=== PATIENT | male | born 1975 | race Caucasian/White ===

== ENCOUNTER 2021-07-10 09:20 | Inpatient (IN) | payer OTHER, SELFPAY ==
[2021-07-10] VITALS (11 sets, daily range): BP systolic 142–197; BP diastolic 88–131; PULSE 68–91; RESP 16–20; TEMP 36.5–36.6; O2SAT 93–99; BMI 31.8
--- NOTE | 2021-07-10 09:22 | XR_ITS ---
WS: [id number] Portable AP upright chest, 07/10/2021 Clinical Data: chest pain Comparison: None. Findings: No nodules, masses or effusions are seen. The heart is normal. The pulmonary vascularity is not increased. No pneumonia or pneumothorax is seen. XR/XR chest 1V portable [id number] Impression: Negative chest.
--- NOTE | 2021-07-10 09:22 | ECG_ITS ---
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 Measurements Intervals [place] Rate: 79 P: 53 CO: 171 QRS: 87 QRSD: 105 T: -27 QT: 366 QTc: 420 Interpretive Statements SINUS RHYTHM WITH SINUS ARRHYTHMIA MODERATE T-WAVE ABNORMALITY, CONSIDER INFERIOR ISCHEMIA [-0.1+ mV T-WAVE IN II/aVF] No previous ECG available for comparison Electronically Signed On 07-10-2021 15:30:19 FUMIGATOR AND STERILIZER by Rosie Ventura M.D. [email or web address]/[id number] f
--- NOTE | 2021-07-10 11:06 | W.ED.CHESTPA ---
HPI - Chest Pain General: Chief Complaint: Chest Pain Stated Complaint: CHEST PAIN Time Seen by Provider: 07/10/21 10:57 Source: patient and family () Mode of arrival: ambulatory Limitations: no limitations History of Present Illness: HPI narrative: Patient is a 46-year-old male who presents to ED today along with his for concerns of episodic chest pains. states patient had an episode almost a week ago of severe substernal and left-sided chest pain. She states it was brought on after he became very upset with an employee. She states since that time he has had episodic chest pains lasting approximately 15 minutes. They do feel symptoms are brought on with exertion and alleviated with rest. He states pain radiates into his neck. Patient reports a history of hypertension and has been off of his medications. He does state his blood pressures have been running extremely high over the past week or so. He denies any previous cardiac history. He states several years ago he was having similar chest pains and underwent cardiac stress testing which was reportedly normal (done in 2016). He states his pains went away once his blood pressure was controlled at that time. Patient denies palpitations, lightheadedness or dizziness. He states he does feel slightly short of breath when pain is present. Denies any risk factors for PE. Denies lower extremity edema or calf pain. Of note, patient states he began having chest pains just from walking from the waiting room to his room that again, alleviated with rest. complaint: chest pain Onset (ago): day(s) Timing of current episode: episodic Prior episodes: Yes Onset: during exertion and other (stress) Pain location: substernal and left chest Pain radiation: neck Severity: moderate Quality: tightness Relieving factors: rest Exacerbating factors: exertion and stress Associated symptoms: Reports no associated symptoms and dyspnea (during episodes of chest pain); Deny abdominal pain, fever(s), nausea, palpitations, syncope or vomiting Treatment prior to arrival: none Risk Factors: Coronary artery disease risk factors: hypertension Review of Systems Const: Denies: fever(s), chills, body aches, fatigue or malaise Eyes: Denies: change in vision or blurry vision Card: Reports: chest pain; Denies: palpitations, irregular heart rhythm, edema, swelling of feet/ankles, lightheadedness, syncope, pre-syncope, dyspnea on exertion or orthopnea Resp: Reports: dyspnea (during episodes of chest pain); Denies: productive cough, non-productive cough, wheezing or hemoptysis GI: Denies: abdominal pain, nausea, vomiting or diarrhea Musc: Denies: neck pain, back pain, extremity pain or joint pain Skin/Breast: Denies: rash Neuro: Denies: headache(s), numbness in extremities, weakness in extremities, sensory changes or dizziness Physical Exam Const: COMMON NORMALS: no acute distress, patient oriented x3, no limitations and alert GENERAL APPEARANCE: cooperative NUTRITIONAL APPEARANCE: overweight ORIENTATION/CONSCIOUSNESS: Yes awake, Yes oriented to person, Yes oriented to place and Yes oriented to time HENMT: COMMON NORMALS: normocephalic and atraumatic HEAD & SCALP: normocephalic and atraumatic Chest: COMMONS NORMALS: normal inspection of the chest and normal palpation of entire chest wall Resp: COMMON NORMALS: normal respiratory effort and clear to auscultation bilaterally AUSCULTATION: clear to auscultation bilaterally Cardio: COMMON NORMALS: regular rate and regular rhythm RATE: regular rate RHYTHM: regular rhythm Extremity: COMMON NORMALS: no clubbing, cyanosis or edema, no calf tenderness and no pedal edema Neuro: COMMON NORMALS: patient oriented x3 SENSORIUM/ORIENTATION: Yes alert, Yes oriented to person, Yes oriented to place and Yes oriented to time Course Consultations: Consultation #1: Dr. Bonilla-accepts admission Consultation #2: Dr. Madrid-recommends aspirin, beta-emilia, lovenox, 1/2 in nitro paste q6 for chest pain, and echo Vital Signs: Vital signs: Vital Signs Pulse Rate 71 07/10/21 13:04 Respiratory Rate 18 07/10/21 13:04 Blood Pressure 145/99 07/10/21 13:04 Pulse Oximetry 97 07/10/21 13:04 MDM - Chest Pain MDM Narrative: Medical decision making narrative: Patient has had intermittent exertional chest pains over the past week. Patient does have inverted T waves to inferior leads on his EKG. Baseline troponin of 57. HEART score would be 7. Spoke with Dr. Joy who agrees this patient needs hospitalization for cardiac stress testing. I spoke to Dr. Bonilla and Dr. Madrid for admission/consult. Lab Data: Labs: Lab Results 07/10/21 07/10/21 07/10/21 11:35 11:35 11:35 WBC 9.5 10^3/uL 10^3/ uL (4.0-10.0) RBC 5.98 10^6/uL H 10 ^6/uL (4.1-5.3) Hgb 17.6 g/dL H g/dL (11.7-16.6) Hct 52.2 % H % (42.0-52.0) MCV 87.3 fl fl (80-94) MCH 29.4 pg pg (28.0-34.0) MCHC 33.7 g/dL g/dL (30.0-36.0) RDW 12.0 % L % (12.1-15.1) Plt Count 220 10^3/cmm 10^3 /cmm (130-400) MPV 11.0 fL H fL (7.4-10.4) Neut % (Auto) 71.1 % % Lymph % (Auto) 20.9 % % [place] % (Auto) 6.0 % % Eos % (Auto) 0.7 % % Baso % (Auto) 0.4 % % Neut # (Auto) 6.74 10^3/uL 10^3 /uL (1.8-7.7) Lymph # (Auto) 2.0 10^3/uL 10^3/ uL (0.8-4.8) [place] # (Auto) 0.6 10^3/uL 10^3/ uL (0.2-0.9) Eos # (Auto) 0.1 10^3/uL 10^3/ uL (0.0-0.8) Baso # (Auto) 0.0 10^3/uL 10^3/ uL (0.0-0.1) Nucleated RBC % (a uto) 0 % % Nucleated RBCs # 0.0 /100WBC /100W BC Sodium 139 mmol/L mmol/L (136-145) Potassium 4.6 mmol/L mmol/L (3.5-5.1) Chloride 100 mmol/L mmol/L (98-107) Carbon Dioxide 24 mmol/L mmol/L (22-29) Anion Gap 19.6 H (5-19) BUN 17 mg/dL mg/dL (6-20) Creatinine 0.7 mg/dL mg/dL (0.7-1.2) GFR Calculation 121.4 mL/min mL/m in (90-130) Glucose 132 mg/dL H mg/dL (65-115) Calculated Osmolal ity 291 mOsm/kg mOsm/ kg (285-295) Calcium 9.5 mg/dL mg/dL (8.5-10.5) Total Bilirubin 0.9 mg/dL mg/dL (0.15-1.2) AST 18 U/L U/L (0-40) ALT 24 U/L U/L (0-41) Alkaline Phosphata se 57 IU/L IU/L (40-130) Troponin T Baselin e 57 ng/L H ng/L (0-15) Total Protein 8.5 g/dL g/dL (6.6-8.7) Albumin 5.1 g/dL g/dL (3.5-5.2) Globulin 3.4 g/dL g/dL (1.3-4.6) Imaging Data^: CXR: Radiologist's impression: [address] [address] XRay Report Signed Patient: Darshan Oakley Unit #: [id number] : 1975 Age/Sex: 46 / M ADM Date: 07/10/21 Loc: ER Room/Bed: Attending Dr: Ordering Provider/Ordering MD: Rosa Childress Date of Service: 07/10/21 Procedure(s): XR chest 1V portable [id number] Accession Number(s): [id number] Report Number: [id number] WS: [id number] Portable AP upright chest, 07/10/2021 Clinical Data: chest pain Comparison: None. Findings: No nodules, masses or effusions are seen. The heart is normal. The pulmonary vascularity is not increased. No pneumonia or pneumothorax is seen. XR/XR chest 1V portable [id number] Impression: Negative chest. Dictated By: Jina Esparza MD Signed By: Jina Esparza MD Signed Date/Time: 07/10/21958 DD/ 8 EKG Data^: EKG 1: EKG interpretation date: 07/10/21 EKG interpretation time: 09:36 Interpretation: Sinus rhythm with sinus arrhythmia Rate 79 Inverted T waves lead II, III, aVF No comparison EKGs Signed off by Dr. Mathew Discharge Plan Discharge Patient Disposition: Admitted As Inpatient Clinical Impression: Non-ST elevation NV (NSTEMI), Hypertension Condition: Stable Prescriptions: No Action No Known Home Medications RF: 0 Referrals: Lakisha Perez MD [Primary Care Provider] - Patient Instructions: Opioid Safety Coding Level of Care Code ED Revenue Stamp Cutter for Chg Fwd Exam Detailed
--- NOTE | 2021-07-10 11:22 | ECG_ITS ---
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 Measurements Intervals [place] Rate: 67 P: 50 ME: 171 QRS: 93 QRSD: 106 T: -24 QT: 367 QTc: 389 Interpretive Statements SINUS RHYTHM WITH SINUS ARRHYTHMIA POSSIBLE LEFT ATRIAL ENLARGEMENT [-0.1mV P-WAVE IN V1/V2] BORDERLINE RIGHT AXIS DEVIATION [QRS AXIS > 90] NONSPECIFIC T-WAVE ABNORMALITY Compared to ECG 07/10/2021 09:36:23 Possible ischemia no longer present T-wave abnormality still present Electronically Signed On 07-10-2021 16:51:43 TRANSONIC ENGINEER by Rosie Ventura M.D. [id number]
[2021-07-10] MEDS: metoprolol tartrate 25 mg Tablet PO (11:43)
[2021-07-10 11:54] LABS: Basophils % 0.4 %; Eosinophils # 0.1 10^3/uL (0.0-0.8); Eosinophils % 0.7 %; Hematocrit 52.2 % (42.0-52.0); Hemoglobin 17.6 g/dL (11.7-16.6); Lymphocytes % 20.9 %; Mean Corpuscular HGB Conc 33.7 g/dL (30.0-36.0); Mean Corpuscular Hemoglobin 29.4 pg (28.0-34.0); Mean Corpuscular Volume 87.3 fl (80-94); Monocytes # 0.6 10^3/uL (0.2-0.9); Neutrophils # 6.74 10^3/uL (1.8-7.7); Neutrophils % 71.1 %; Nucleated Red Blood Cells % 0 %; Platelet Count 220 10^3/cmm (130-400); Red Blood Count 5.98 10^6/uL (4.1-5.3); White Blood Count 9.5 10^3/uL (4.0-10.0)
[2021-07-10 12:10] LABS: Troponin(5th) Baseline 57 ng/L (0-15)
[2021-07-10 12:12] LABS: Alanine Aminotransferase 24 U/L (0-41); Albumin Level 5.1 g/dL (3.5-5.2); Alkaline Phosphatase 57 IU/L (40-130); Anion Gap 19.6 (5-19); Aspartate Amino Transferase 18 U/L (0-40); Blood Urea Nitrogen 17 mg/dL (6-20); Calcium 9.5 mg/dL (8.5-10.5); Carbon Dioxide 24 mmol/L (22-29); Chloride 100 mmol/L (98-107); Globulin 3.4 g/dL (1.3-4.6); Glomerular Filtration Rate 121.4 mL/min (90-130); Glucose 132 mg/dL (65-115); Osmolality Calculated 291 mOsm/kg (285-295); Potassium 4.6 mmol/L (3.5-5.1); Sodium 139 mmol/L (136-145); Total Bilirubin 0.9 mg/dL (0.15-1.2); Total Protein 8.5 g/dL (6.6-8.7)
[2021-07-10] MEDS: aspirin 81 mg Chew Tablet 324 MG PO (13:04)
--- NOTE | 2021-07-10 13:20 | USCV_ITS ---
Darshan Oakley Age: 46 Gender: M : 1975 Exam Date: 07/10/2021 14:09 Ordering Phys: Teto Salinas MD Technologist: Kenrick Mendoza [place] [facility] [place]: PULM EDEMA BP: 149 / 99 HR: 66 Rhythm: Sinus Technical Quality: Adequate MEASUREMENTS (Male / Female) Normal Values 2D ECHO LV Diastolic Diameter PLAX 4.1 cm 4.2 - 5.9 / 3.9 - 5.3 cm LV Systolic Diameter PLAX 2.5 cm IVS Diastolic Thickness 0.6 cm 0.6 - 1.0 / 0.6 - 0.9 cm IVS Systolic Thickness 0.7 cm LVPW Diastolic Thickness 0.8 cm 0.6 - 1.0 / 0.6 - 0.9 cm LVPW Systolic Thickness 0.9 cm LVOT Diameter 2.0 cm LV Ejection Fraction 2D Teich 70.3 % LV Ejection Fraction MOD 2C 47.1 % LV Ejection Fraction 2C AL 47.1 % LA Diameter 3.0 cm LA Width 3.1 cm LA Height 4.8 cm RA Width 4.1 cm RA Height 3.9 cm Aorta at Sinotubular Diameter 2.3 cm M-MODE Aortic Annulus Diameter 2.9 cm LA Ao Ratio MM 1.0 MV E Point Septal Separation 0.3 cm DOPPLER AV Peak Velocity 109.0 cm/s LVOT Peak Velocity 94.0 cm/s AV Area Cont Eq vti 2.8 cm squared AV Area Cont Eq pk 2.7 cm squared MV Area PHT 4.9 cm squared Mitral E to A Ratio 1.0 MV E' Velocity 38.0 cm/s Mitral E to MV E' Ratio 6.2 Mitral E to LV E' Lateral Ratio 5.2 Mitral E to LV E' Septal Ratio 7.6 Right Atrial Pressure 3.0 mmHg RV Acceleration Time 0.2 s RV Ejection Time 0.3 s RV AcT/ET 0.5 FINDINGS Left Ventricle Normal left ventricular size and systolic function, EF 59 %. No regional wall motion abnormalities. Relative hypokinesia of the mid and apical septal segments Right Ventricle The right ventricle is normal in size and function. Right Atrium The right atrium is normal in size. Left Atrium The left atrium is normal in size. Mitral Valve No gross abnormalities noted Aortic Valve No gross abnormalities noted Tricuspid Valve No gross abnormalities noted Pulmonic Valve Not visualized well Pericardium Normal pericardium without effusion. Aorta Normal ascending aorta dimension. CONCLUSIONS Normal left ventricular size and systolic function, EF 59 %. No regional wall motion abnormalities. Relative hypokinesia of the mid and apical septal segments. Normal cardiac chamber sizes. No significant stenotic or regurgitant lesions There is no pericardial effusion. There are no intracardiac masses. Dr Elizabeth Madrid MD FACC (Electronically Signed) Final Date: 10 July 2021 23:20 S
--- NOTE | 2021-07-10 13:30 | P.HP_ITS ---
Providers/Chief Complaint Primary Care Provider: Lakisha Perez MD Chief Complaint: CHEST PAIN History of Present Illness Darshan Oakley is a 46 year old male past medical history of prediabetes, hypertension who is presenting with chest pain. The chest pain started several days ago. It is intermittent, substernal, left-sided without radiation. Triggered and exacerbated by physical activities. No alleviating factors. Currently not having active chest pain. Associated with shortness of breath. Denies associated diaphoresis, palpitations, dizziness or lightheadedness. Reports similar episodes in the past. In 2016 he had unremarkable stress test. On presentation his blood pressure is 190s. Review of Systems General: Reports: 10 or more systems reviewed and unremarkable except in HPI and below Medications/Allergies Home Medications Medication Instructions Recorded Confirmed Last Taken Type No Known Home Medications 07/10/21 07/10/21 Unknown History Allergies Allergy/AdvReac Type Severity Reaction Status Date / Time No Known Allergies Allergy Unverified 07/10/21 12:02 Vitals/I&O/Wt Last Vital Signs Pulse 71 07/10/21 13:04 Resp 18 07/10/21 13:04 BP 145/99 07/10/21 13:04 Pulse Ox 97 07/10/21 13:04 Weight last 48 hrs Weight 106.594 kg Physical Exam Narrative: EXAM NARRATIVE: The patient is awake alert oriented. No acute distress. Mood and affect are appropriate. Responses are adequate. Skin is warm and dry. Moist extremities. Neck supple. No JVD Lungs are clear to auscultation bilaterally. Heart S1, S2, regular Abdomen soft, nontender, bowel sounds are present Extremities no edema sinus or calf tenderness bilaterally Eyes PERRL, extraocular muscles are intact. Normal speech. Neuro examination is nonfocal. Data : 07/10/21 11:35 07/10/21 11:35 Other Labs: Laboratory Results WBC 9.5 10^3/uL (4.0-10.0) 07/10/21 11:35 RBC 5.98 10^6/uL (4.1-5.3) H 07/10/21 11:35 Hgb 17.6 g/dL (11.7-16.6) H 07/10/21 11:35 Hct 52.2 % (42.0-52.0) H 07/10/21 11:35 MCV 87.3 fl (80-94) 07/10/21 11:35 MCH 29.4 pg (28.0-34.0) 07/10/21 11:35 MCHC 33.7 g/dL (30.0-36.0) 07/10/21 11:35 RDW 12.0 % (12.1-15.1) L 07/10/21 11:35 Plt Count 220 10^3/cmm (130-400) 07/10/21 11:35 MPV 11.0 fL (7.4-10.4) H 07/10/21 11:35 Neut % (Auto) 71.1 % 07/10/21 11:35 Lymph % (Auto) 20.9 % 07/10/21 11:35 [place] % (Auto) 6.0 % 07/10/21 11:35 Eos % (Auto) 0.7 % 07/10/21 11:35 Baso % (Auto) 0.4 % 07/10/21 11:35 Neut # (Auto) 6.74 10^3/uL (1.8-7.7) 07/10/21 11:35 Lymph # (Auto) 2.0 10^3/uL (0.8-4.8) 07/10/21 11:35 [place] # (Auto) 0.6 10^3/uL (0.2-0.9) 07/10/21 11:35 Eos # (Auto) 0.1 10^3/uL (0.0-0.8) 07/10/21 11:35 Baso # (Auto) 0.0 10^3/uL (0.0-0.1) 07/10/21 11:35 Nucleated RBC % (auto) 0 % 07/10/21 11:35 Nucleated RBCs # 0.0 /100WBC 07/10/21 11:35 Sodium 139 mmol/L (136-145) 07/10/21 11:35 Potassium 4.6 mmol/L (3.5-5.1) 07/10/21 11:35 Chloride 100 mmol/L (98-107) 07/10/21 11:35 Carbon Dioxide 24 mmol/L (22-29) 07/10/21 11:35 Anion Gap 19.6 (5-19) H 07/10/21 11:35 BUN 17 mg/dL (6-20) 07/10/21 11:35 Creatinine 0.7 mg/dL (0.7-1.2) 07/10/21 11:35 GFR Calculation 121.4 mL/min (90-130) 07/10/21 11:35 Glucose 132 mg/dL (65-115) H 07/10/21 11:35 Calculated Osmolality 291 mOsm/kg (285-295) 07/10/21 11:35 Calcium 9.5 mg/dL (8.5-10.5) 07/10/21 11:35 Total Bilirubin 0.9 mg/dL (0.15-1.2) 07/10/21 11:35 AST 18 U/L (0-40) 07/10/21 11:35 ALT 24 U/L (0-41) 07/10/21 11:35 Alkaline Phosphatase 57 IU/L (40-130) 07/10/21 11:35 Troponin T Baseline 57 ng/L (0-15) H 07/10/21 11:35 Total Protein 8.5 g/dL (6.6-8.7) 07/10/21 11:35 Albumin 5.1 g/dL (3.5-5.2) 07/10/21 11:35 Globulin 3.4 g/dL (1.3-4.6) 07/10/21 11:35 Impressions Chest X-Ray 07/10/21 09:22 Impression: Negative chest. EKG shows T wave inversion in inferior leads. Troponin slightly elevated. A&P Assessment and plan (1) Non-ST elevation NE (NSTEMI): Status: Acute (2) Hypertension: Status: Acute Qualifiers: Hypertension type: primary hypertension Qualified Code(s): I10 - Essential (primary) hypertension (3) Prediabetes: Status: Acute Additional A&P Information 46-year-old male with chest pain, possible inferior leads ischemic changes, elevated troponin. Non-ST elevation NE. The patient will be admitted to telemetry. Will be seen by Dr. Madrid. He recommended to continue with aspirin, initiate full dose Lovenox, beta-emilia, statin, and as needed nitro paste for chest pain. Hypertensive urgency. We will start Coreg. Will use as needed medications to keep the blood pressure stable. Prediabetes. Will check A1c level. Will cover him with insulin sliding scale. Dyslipidemia. Statin. We will check his fasting lipids in the morning. DVT prophylaxis. He will be on Lovenox. CODE STATUS. He wants to be full code. The plan of care was discussed with the patient and his . They verbalized understanding and satisfaction with the conversation. Attestations Medical Necessity Statement*: Observation Coding Level of Care Code Acute Gravity Prospecting Observer Helper for [facility] Fwd Diagnoses Non-ST elevation NE (NSTEMI) I21.4 Hypertension I10 Hypertension type: primary hypertension Prediabetes R73.03
[2021-07-10 14:00] LABS: INR 0.95 (0.8-1.2)
[2021-07-10 14:01] LABS: Partial Thromboplastin Time 29.6 SECONDS (23.9-36.7)
[2021-07-10 14:08] LABS: Troponin 5 2HR 123.2 ng/L (0-15); Troponin 5 2HR Delta 66.2 ABS# (0-10)
--- NOTE | 2021-07-10 14:17 | PC.NURSE ---
1405- ultraosund at bedside performing procedure. patient in no obvious distress. > patient will be transported to floor upon finish.
[2021-07-10 14:26] LABS: Estmated Average Glucose 148; Hemoglobin A1C 6.8 % (4.0-6.0)
--- NOTE | 2021-07-10 15:22 | ECG_ITS ---
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 Measurements Intervals [place] Rate: 71 P: 54 IA: 186 QRS: 85 QRSD: 108 T: 62 QT: 375 QTc: 408 Interpretive Statements SINUS RHYTHM Compared to ECG 07/10/2021 11:20:57 Sinus arrhythmia no longer present T-wave abnormality no longer present Electronically Signed On 07-10-2021 16:50:22 ELECTRONICS INSTRUCTOR by Rosie Ventura M.D. [email or web address] [email or web address]/store/[id number]
[2021-07-10 17:14] LABS: Glucose Point of Care 123 mg/dL (70-110)
[2021-07-10] MEDS: enoxaparin 100 mg/mL Syringe SUBCUT (17:25)
[2021-07-10] MEDS: carvedilol 3.125 mg Tablet PO (17:25)
[2021-07-10 17:46] LABS: Adenovirus Not Detected (NOT DETECT); Chlamydia Pneumoniae Not Detected (NOT DETECT); Coronavirus 229E,HKU1,NL63,OC4 Not Detected (NOT DETECT); Human Metapneumovirus Not Detected (NOT DETECT); Human Rhinovirus/Enterovirus Not Detected (NOT DETECT); Influenza A Not Detected (NOT DETECT); Influenza A H1 Not Detected (NOT DETECT); Influenza A H1-2009 Not Detected (NOT DETECT); Influenza A H3 Not Detected (NOT DETECT); Influenza B Not Detected (NOT DETECT); Mycoplasma Pneumoniae Not Detected (NOT DETECT); Parainfluenza Virus Type 1 Not Detected (NOT DETECT); Parainfluenza Virus Type 2 Not Detected (NOT DETECT); Parainfluenza Virus Type 3 Not Detected (NOT DETECT); Parainfluenza Virus Type 4 Not Detected (NOT DETECT); Respiratory Syncytial Virus A Not Detected (NOT DETECT); Respiratory Syncytial Virus B Not Detected (NOT DETECT); SARS-COV-2 Not Detected (NOT DETECT)
--- NOTE | 2021-07-10 19:51 | PM.CONSULT ---
Providers/Reason For Consult Consulting Physician/Specialty*: WILMER Madrid MD/cardiology Reason for Consult*: Patient with chest pain and elevated troponin T Attending Physician: Teto Salinas Primary Care Provider: Lakisha Perez MD History of Present Illness History of Present Illness Darshan Oakley is a 46 year old male, is admitted to the hospital through the emergency room, where he presented with complaints of a prolonged episode of chest pain. Patient was found to have elevated troponin T with a significant delta at the 2 and 6 hours interval. Cardiology consult is requested for further cardiac evaluation and recommendations. This patient has a history of hypertension, dyslipidemia and type 2 diabetes. He has been very noncompliant with the medications and follow-ups. He started having chest pain around 8:00 this morning. The pain might have lasted for 2 to 3 hours. The pain was radiating across the chest and also to the neck and some to the back. He might have had some shortness of breath. No other associated symptoms or radiation of pain. No palpitation, dizziness or syncopal episode. Patient had the first episode of chest pain last Saturday at work when he had some arguments with one of the employees. The pain lasted for 15 minutes or so and then subsided spontaneously. Last , he had another episode of pain while at work. 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 This morning he had a fourth episode of chest pain in a week. This time the pain was more severe and lasted longer. He denies any fever, chills or cough. He has some amount of dyspnea exertion. No orthopnea PND. No other specific complaints. He has a history of high blood pressure for the last 6 or 7 years. He also was diagnosed with diabetes 2 years ago. He took the medication for a year or so and then quit. He also was prescribed cholesterol medication sometime ago. He might have taken it for few months and then stopped taking it. His father had myocardial infarction at age of 45. His old brother had a percutaneous intervention in his 40s. No other relevant family history. He denies any smoking abuse or alcohol abuse. At the time of my examination, patient is pain-free. Review of Systems Narrative: CONSTITUTIONAL: No fever or chills. EYES: No blurring of vision or other visual disturbances lately. ENT: No hoarseness of voice, auditory disturbances or sore throat. CARDIOVASCULAR: As mentioned above. RESPIRATORY: No significant cough. GASTROINTESTINAL: No hematemesis or melena. GENITOURINARY: No dysuria or hematuria. INTEGUMENTARY: No skin rashes or history of skin cancer. NEURO: No transient ischemic attacks or amaurosis. PSYCHIATRIC: No history of psychosis or major depression. HEMATOLOGIC: No bleeding disorders or significant anemia. ENDOCRINE: No history of polyuria or polydipsia. MUSCULOSKELETAL: No recent joint pain or swelling. ALLERGY/IMMUNOLOGY: As mentioned above. Meds/Allergies Home Medications and Allergies Home Medications Medication Instructions Recorded Confirmed Last Taken Type No Known Home Medications 07/10/21 07/10/21 Unknown History Allergies Allergy/AdvReac Type Severity Reaction Status Date / Time No Known Allergies Allergy Unverified 07/10/21 12:02 Current Medications Current Medications Generic Name Dose Route Start Last Admin Trade Name Freq PRN Reason Stop Dose Admin Carvedilol 3.125 mg 07/10/21 18:00 07/10/21 17:25 Carvedilol 3.125 Mg Tablet PO 3.125 mg Q12H MARTHA Administration Enoxaparin Sodium 100 mg 07/10/21 16:30 07/10/21 17:25 Enoxaparin 100 Mg/Ml Syringe SUBCUT 100 mg Q12H MARTHA Administration Insulin Human Lispro 0 unit 07/10/21 18:00 07/10/21 17:19 Insulin Lispro 100 Unit/1 Ml SUBCUT Not Given [facility] Protocol Vitals/I&O/Wt Last Vital Signs Temp 97.9 F 07/10/21 19:50 Pulse 83 07/10/21 19:50 Resp 18 07/10/21 19:50 BP 176/100 07/10/21 19:50 Pulse Ox 93 07/10/21 19:50 07/10/21 07/10/21 07/10/21 06:59 14:59 22:59 Intake Total 480 / 480 Balance 480 / 480 Weight last 48 hrs Weight 235 lb Physical Exam Narrative: EXAM NARRATIVE: GENERAL: The patient is alert and oriented times three. Not in any acute distress. HEENT: No significant pallor, icterus or lymphadenopathy. The pupils are symmetrical. Oral cavity: There are no mucous membrane lesions. Funduscopic examination: The fundus is not visualized NECK: Trachea appears to be central. No masses noted. No JVD or thyromegaly appreciated. No carotid bruit. RESPIRATORY: Chest is symmetrical. No intercostals muscle retraction or any accessory muscle activation. There is no chest wall tenderness. Breath sounds are heard bilaterally. No rales or rhonchi heard. No evidence of any consolidation. BREASTS: Deferred. HEART: The PMI is in the 5th left intercostals space just inside the midclavicular line. No palpable precordial events. S1 and S2 are normal. No S3 or S4 heard. No pericardial rub or any click heard. ABDOMEN: No vessel pulsations or distention. No tenderness. No organomegaly appreciated. No abdominal bruit. Bowel sounds are normally heard. : Deferred. RECTAL: Deferred. LYMPHATIC: No lymphadenopathy noted in the neck or groin. EXTREMITIES: No edema or cyanosis. No clubbing. The pulses are symmetrical bilaterally. The radial, femoral, dorsalis pedis and the posterior tibial pulses are palpated and found to be in good volume and amplitude. MUSCULOSKELETAL: No acute joint deformities or swelling] SKIN: There are no significant scars or skin rash noted. NEUROPSYCHIATRIC: The patient is alert and oriented x3. Appears to be in a good mood. The higher functions are grossly within normal limits. No tremors or rigidity noted. Data Labs: Other Labs: Laboratory Last Values WBC 9.5 10^3/uL (4.0- 10.0) 07/10/21 11:35 RBC 5.98 10^6/uL (4.1 -5.3) H 07/10/21 11:35 Hgb 17.6 g/dL (11.7-1 6.6) H 07/10/21 11:35 Hct 52.2 % (42.0-52.0 ) H 07/10/21 11:35 MCV 87.3 fl (80-94) 07/10/21 11:35 MCH 29.4 pg (28.0-34. 0) 07/10/21 11:35 MCHC 33.7 g/dL (30.0-3 6.0) 07/10/21 11:35 RDW 12.0 % (12.1-15.1 ) L 07/10/21 11:35 Plt Count 220 10^3/cmm (130 -400) 07/10/21 11:35 MPV 11.0 fL (7.4-10.4 ) H 07/10/21 11:35 Neut % (Auto) 71.1 % 07/10/21 11:35 Lymph % (Auto) 20.9 % 07/10/21 11:35 [place] % (Auto) 6.0 % 07/10/21 11:35 Eos % (Auto) 0.7 % 07/10/21 11:35 Baso % (Auto) 0.4 % 07/10/21 11:35 Neut # (Auto) 6.74 10^3/uL (1.8 -7.7) 07/10/21 11:35 Lymph # (Auto) 2.0 10^3/uL (0.8- 4.8) 07/10/21 11:35 [place] # (Auto) 0.6 10^3/uL (0.2- 0.9) 07/10/21 11:35 Eos # (Auto) 0.1 10^3/uL (0.0- 0.8) 07/10/21 11:35 Baso # (Auto) 0.0 10^3/uL (0.0- 0.1) 07/10/21 11:35 Nucleated RBC % (a uto) 0 % 07/10/21 11:35 Nucleated RBCs # 0.0 /100WBC 07/10/21 11:35 PT 13.00 SECONDS (12 .1-14.9) 07/10/21 13:23 INR 0.95 (0.8-1.2) 07/10/21 13:23 APTT 29.6 SECONDS (23. 9-36.7) 07/10/21 13:23 Sodium 139 mmol/L (136-1 45) 07/10/21 11:35 Potassium 4.6 mmol/L (3.5-5 .1) 07/10/21 11:35 Chloride 100 mmol/L (98-10 7) 07/10/21 11:35 Carbon Dioxide 24 mmol/L (22-29) 07/10/21 11:35 Anion Gap 19.6 (5-19) H 07/10/21 11:35 BUN 17 mg/dL (6-20) 07/10/21 11:35 Creatinine 0.7 mg/dL (0.7-1. 2) 07/10/21 11:35 GFR Calculation 121.4 mL/min (90- 130) 07/10/21 11:35 Glucose 132 mg/dL (65-115 ) H 07/10/21 11:35 POC Glucose 123 mg/dL (70-110 ) H 07/10/21 17:09 Estimat Average Gl ucose 148 07/10/21 11:35 Hemoglobin A1c 6.8 % (4.0-6.0) H 07/10/21 11:35 Calculated Osmolal ity 291 mOsm/kg (285- 295) 07/10/21 11:35 Calcium 9.5 mg/dL (8.5-10 .5) 07/10/21 11:35 Total Bilirubin 0.9 mg/dL (0.15-1 .2) 07/10/21 11:35 AST 18 U/L (0-40) 07/10/21 11:35 ALT 24 U/L (0-41) 07/10/21 11:35 Alkaline Phosphata se 57 IU/L (40-130) 07/10/21 11:35 Troponin T Baselin e 57 ng/L (0-15) H 07/10/21 11:35 Troponin T 120 Min goldie 123.2 ng/L (0-15) H 07/10/21 13:23 Delta Troponin T 66.2 ABS# (0-10) H* 07/10/21 13:23 Total Protein 8.5 g/dL (6.6-8.7 ) 07/10/21 11:35 Albumin 5.1 g/dL (3.5-5.2 ) 07/10/21 11:35 Globulin 3.4 g/dL (1.3-4.6 ) 07/10/21 11:35 Coronavirus 229E ( PCR) Not detected (NO T DETECT) 07/10/21 15:45 SARS-CoV-2 (PCR) Not detected (NO T DETECT) 07/10/21 15:45 A&P Assessment and plan (1) Acute coronary syndrome: The patient's the clinical features are consistent with acute coronary syndrome. Hemodynamically seems to be stable. He has stage II hypertension. The EKGs are not. Patient may be treated with aspirin, Plavix, Lovenox, beta-emilia and nitrates. An echocardiogram would be helpful to evaluate the LV function and rule out any other pathology. Status: Acute (2) Prediabetes: The blood sugar needs to be closely followed up. Status: Acute (3) Non-ST elevation [place] (NSTEMI): Patient may require a cardiac catheterization, to further evaluate the coronary status and decide on further management. Status: Acute (4) Benign essential HTN: The antihypertensive medications need to be optimized Status: Acute (5) Dyslipidemia: Status: Acute Additional A&P Information Based on the patient's the clinical progress and the results of the above, further recommendations will be made. Thank you for the opportunity to evaluate this patient make these recommendations Consult Attestations Medical Necessity Statement: Patient requires continued hospital stay for close monitoring and further management Coding Level of Care Code Acute Sales Development Consultant for Chg Fwd History Detailed Exam Detailed Medical Decision Making High Complexity Diagnoses Acute coronary syndrome I24.9 Prediabetes R73.03 Non-ST elevation AR (NSTEMI) I21.4 Benign essential HTN I10 Dyslipidemia E78.5
[2021-07-10 20:37] LABS: Glucose Point of Care 122 mg/dL (70-110)
[2021-07-10] MEDS: hyDRALAzine 20 mg/mL INJ 1 mL 10 MG IVP (23:42)
--- NOTE | 2021-07-10 23:56 | PC.NURSE ---
BP BP was elevated at 177/112 with VS check. Had been up ambulating in [place] some. No c/o. Hydralazine IV given by RN
[2021-07-11] VITALS (16 sets, daily range): BP systolic 116–177; BP diastolic 70–112; PULSE 62–110; RESP 16–26; TEMP 36.6–36.9; O2SAT 93–96
[2021-07-11] MEDS: clopidogrel 300 mg Tablet PO (00:57)
[2021-07-11] MEDS: enoxaparin 100 mg/mL Syringe SUBCUT (03:54)
[2021-07-11 05:34] LABS: Basophils # 0.1 10^3/uL (0.0-0.1); Basophils % 0.6 %; Eosinophils # 0.1 10^3/uL (0.0-0.8); Eosinophils % 1.5 %; Hematocrit 48.3 % (42.0-52.0); Hemoglobin 16.2 g/dL (11.7-16.6); Lymphocytes # 2.7 10^3/uL (0.8-4.8); Lymphocytes % 30.2 %; Mean Corpuscular HGB Conc 33.5 g/dL (30.0-36.0); Mean Corpuscular Hemoglobin 29.6 pg (28.0-34.0); Mean Corpuscular Volume 88.3 fl (80-94); Monocytes # 0.6 10^3/uL (0.2-0.9); Monocytes % 7.2 %; Neutrophils # 5.29 10^3/uL (1.8-7.7); Neutrophils % 59.8 %; Nucleated Red Blood Cells % 0 %; Platelet Count 205 10^3/cmm (130-400); Red Blood Count 5.47 10^6/uL (4.1-5.3); Red Cell Distribution Width 12.2 % (12.1-15.1); White Blood Count 8.8 10^3/uL (4.0-10.0)
[2021-07-11] MEDS: carvedilol 3.125 mg Tablet PO (05:51)
--- NOTE | 2021-07-11 05:55 | PC.NURSE ---
SHIFT SUMMARY Did not sleep much. Declined offer of sleeping pilll last evening saying that he never gets alot of sleep. Has had no c/o chest pain. pvc monitor has been showing SR with occ SB. BP was much improved with am VS. Has been NPO since order received from Dr Madrid around midnight. Also received one time dose of po Plavix
[2021-07-11 06:11] LABS: Alanine Aminotransferase 20 U/L (0-41); Albumin Level 4.3 g/dL (3.5-5.2); Alkaline Phosphatase 52 IU/L (40-130); Anion Gap 19.1 (5-19); Aspartate Amino Transferase 21 U/L (0-40); Blood Urea Nitrogen 18 mg/dL (6-20); Calcium 9.1 mg/dL (8.5-10.5); Carbon Dioxide 22 mmol/L (22-29); Chloride 102 mmol/L (98-107); Glomerular Filtration Rate 104.1 mL/min (90-130); Glucose 133 mg/dL (65-115); Osmolality Calculated 292 mOsm/kg (285-295); Potassium 4.1 mmol/L (3.5-5.1); Sodium 139 mmol/L (136-145); Total Bilirubin 1.1 mg/dL (0.15-1.2); Total Protein 7.3 g/dL (6.6-8.7)
[2021-07-11 06:20] LABS: Chol HDL Ratio 10.18 mg/dL (1.0-5.00); Cholesterol 336 mg/dL (0-200); HDL Cholesterol 33 mg/dL (60-100); Triglycerides 873 mg/dL (0-150)
[2021-07-11 06:50] LABS: LDL Cholesterol Direct 147 mg/dL (0-100)
[2021-07-11 06:55] LABS: Glucose Point of Care 149 mg/dL (70-110)
[2021-07-11] MEDS: aspirin 81 mg EC Tablet PO (08:11)
[2021-07-11] MEDS: atorvastatin 40 mg Tablet PO (08:11)
[2021-07-11] MEDS: hyDRALAzine 20 mg/mL INJ 1 mL 10 MG IVP (08:12)
--- NOTE | 2021-07-11 08:46 | ECG_ITS ---
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 Measurements Intervals [place] Rate: 80 P: 51 WY: 184 QRS: 88 QRSD: 102 T: -53 QT: 370 QTc: 429 Interpretive Statements SINUS RHYTHM MODERATE T-WAVE ABNORMALITY, CONSIDER LATERAL ISCHEMIA [-0.1+ mV T WAVE IN I/aVL/V5/V6] MODERATE T-WAVE ABNORMALITY, CONSIDER INFERIOR ISCHEMIA [-0.1+ mV T WAVE IN II/aVF] Compared to ECG 07/10/2021 15:35:01 T-wave abnormality now present Possible ischemia now present Electronically Signed On 07-12-2021 0:00:00 CHALK EXTRUDING MACHINE OPERATOR by Elizabeth Madrid M.D. [id number]
[2021-07-11] MEDS: amlodipine 5 mg Tablet PO (08:47)
[2021-07-11] MEDS: nitroglycerin 1 gm/inch oint Pkt 0.5 INCH TOPICAL (08:47)
[2021-07-11 09:49] LABS: Troponin T (5th) Once 89 ng/L (0-15)
[2021-07-11] MEDS: sodium chloride 0.9% 1,000 ML 50 ML IV (09:50)
--- NOTE | 2021-07-11 10:09 | ECG_ITS ---
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 Measurements Intervals [place] Rate: 91 P: 47 CT: 182 QRS: 80 QRSD: 105 T: -42 QT: 361 QTc: 445 Interpretive Statements SINUS RHYTHM MODERATE T-WAVE ABNORMALITY, CONSIDER INFERIOR ISCHEMIA [-0.1+ mV T WAVE IN II/aVF] Compared to ECG 07/10/2021 15:35:01 T-wave abnormality now present Possible ischemia now present Electronically Signed On 07-12-2021 0:12:51 YOUTH SUPPORT WORKER by Elizabeth Madrid M.D. [id number]
[2021-07-11 11:57] LABS: Glucose Point of Care 206 mg/dL (70-110)
--- NOTE | 2021-07-11 13:08 | P.PN_ITS ---
Subjective Subjective: Interval history: Patient did okay through the night. This morning he had episode of chest pain lasting for less than 5 minutes. Currently he is pain-free. The EKG from this morning showed sinus rhythm with nonspecific T wave changes in the inferior leads. Denies any fever or chills. No cough. No other specific complaints. Medications: Reviewed: Yes Medication Review Details: Current Medications Acetaminophen (Acetaminophen 325 Mg Tablet) 650 mg PO Q6H PRN PRN Reason: Mild/Mod Pain Or Temp >/= 101 Amlodipine Besylate (Amlodipine 5 Mg Tablet) 5 mg PO DAILY [facility] Last Admin: 07/11/21 08:47 Dose: 5 mg Documented by: Aspirin (Aspirin 81 Mg Ec Tablet) 81 mg PO DAILY [facility] Last Admin: 07/11/21 08:11 Dose: 81 mg Documented by: Atorvastatin Calcium (Atorvastatin 40 Mg Tablet) 40 mg PO DAILY [facility] Last Admin: 07/11/21 08:11 Dose: 40 mg Documented by: Carvedilol (Carvedilol 3.125 Mg Tablet) 6.25 mg PO Q12H [facility] Dextrose (Dextrose 50% Syringe 50 Ml) 25 ml IVP ONCE PRN; Protocol PRN Reason: hypoglycemia protocol Dextrose (Dextrose 50% Syringe 50 Ml) 50 ml IVP PRN PRN; Protocol PRN Reason: hypoglycemia protocol Enoxaparin Sodium (Enoxaparin 100 Mg/Ml Syringe) 100 mg SUBCUT Q12H [facility] Last Admin: 07/11/21 03:54 Dose: 100 mg Documented by: Glucagon (Glucagon 1 Mg/Ml Inj 1 Ml) 1 mg IM ONCE PRN; Protocol PRN Reason: Adult Acute Hypoglycemia Prot. Hydralazine HCl (Hydralazine 20 Mg/Ml Inj 1 Ml) 10 mg IVP Q4H PRN PRN Reason: SBP above 160 Last Admin: 07/11/21 08:12 Dose: 10 mg Documented by: Dextrose (D5w) 500 mls @ 100 mls/hr IV ONCE PRN; Protocol PRN Reason: Adult Acute Hypoglycemia Prot Sodium Chloride (Sodium Chloride 0.9%) 1,000 mls @ 50 mls/hr IV .Q20H ONE Stop: 07/12/21 05:48 Insulin Human Lispro (Insulin Lispro 100 Unit/1 Ml) 0 unit SUBCUT WM&BEDTIME [facility]; Protocol Last Admin: 07/11/21 08:07 Dose: Not Given Documented by: Nitroglycerin (Nitroglycerin 1 Gm/Inch Oint Pkt) 1 inch TOPICAL Q6H MARTHA Ondansetron HCl (Ondansetron 2 Mg/Ml Sdv 2 Ml) 4 mg IVP Q6H PRN PRN Reason: vomiting, or N/V if npo Zolpidem Tartrate (Zolpidem 5 Mg Tablet) 5 mg PO BEDTIME PRN PRN Reason: INSOMNIA Vitals/I&O/Wt Last Vital Signs Temp 97.9 F 07/11/21 11:25 Pulse 109 H 07/11/21 11:25 Resp 17 07/11/21 11:25 BP 138/93 07/11/21 11:25 Pulse Ox 93 07/11/21 11:25 07/10/21 07/11/21 07/11/21 22:59 06:59 14:59 Intake Total 720 / 720 340 / 1060 Balance 720 / 720 340 / 1060 Weight last 48 hrs Weight 235 lb Physical Exam Narrative: EXAM NARRATIVE: GENERAL: The patient is alert and oriented times three. Not in any acute distress. HEENT: No significant pallor, icterus or lymphadenopathy. The pupils are symmetrical. Oral cavity: There are no mucous membrane lesions. NECK: Trachea appears to be central. No masses noted. No JVD or thyromegaly appreciated. No carotid bruit. RESPIRATORY: Chest is symmetrical. No intercostals muscle retraction or any accessory muscle activation. There is no chest wall tenderness. Breath sounds are heard bilaterally. No rales or rhonchi heard. No evidence of any consolidation. BREASTS: Deferred. HEART: No palpable precordial events. S1 and S2 are normal. No S3 or S4 heard. No pericardial rub or any click heard. ABDOMEN: No vessel pulsations or distention. No tenderness. No organomegaly appreciated. No abdominal bruit. Bowel sounds are normally heard. : Deferred. RECTAL: Deferred. LYMPHATIC: No lymphadenopathy noted in the neck or groin. EXTREMITIES: No edema or cyanosis. No clubbing. The peripheral pulses are palpable in fairly good volume and amplitude MUSCULOSKELETAL: No acute joint deformities or swelling] SKIN: There are no significant scars or skin rash noted. NEUROPSYCHIATRIC: The patient is alert and oriented x3. Appears to be in a good mood. The higher functions are grossly within normal limits. No tremors or rigidity noted. Data : 07/11/21 04:48 07/11/21 04:48 Echo: My impression: Normal left ventricular size and systolic function, EF 59 %. Relative hypokinesia of the mid and apical septal segments. Normal cardiac chamber sizes. No significant stenotic or regurgitant lesions There is no pericardial effusion. There are no intracardiac masses. A&P Assessment and plan (1) Acute coronary syndrome: The patient's the clinical features are consistent with acute coronary syndrome. In view of his recurrent episodes of chest pain, in order to further evaluate his coronary status, he requires a cardiac catheterization. The risk of bleeding, hematoma, vascular injury, myocardial infarction, CVA, renal failure and other concomitant complications were explained in detail. Patient understood this well and consented to proceed. We may go ahead and schedule the angiogram this afternoon. Based on the angiogram findings, further recommendations will be made. In the meanwhile, he may continue on the current medications. He also may start taking the Plavix 75 mg p.o. daily Status: Acute (2) Prediabetes: The blood sugar needs to be closely followed up. Status: Acute (3) Non-ST elevation [place] (NSTEMI): Patient will be scheduled for the cardiac catheterization this evening. Based on the angiogram findings, further management decisions will be made Status: Acute (4) Benign essential HTN: The antihypertensive medications need to be optimized Status: Acute (5) Dyslipidemia: May continue on the current medication Status: Acute Additional A&P Information Based on the patient's the clinical progress and the results of the above, further management decisions will be made. Attestations Medical Necessity Statement*: Patient requires continued hospital stay for close monitoring and further management Coding Level of Care Code Acute Ground Crew Chief for g Fwd History Detailed Exam Detailed Medical Decision Making High Complexity Diagnoses Acute coronary syndrome I24.9 Prediabetes R73.03 Non-ST elevation [place] (NSTEMI) I21.4 Benign essential HTN I10 Dyslipidemia E78.5
--- NOTE | 2021-07-11 13:40 | PM.PN ---
Subjective Subjective: Interval history: The patient experienced more chest discomfort earlier this morning which responded well to nitroglycerin. Currently doing better. No chest pain, shortness of breath, diaphoresis, dizziness or lightheadedness. Medications: Reviewed: Yes Medication Review Details: Generic Name Dose Route Start Last Admin Trade Name Freq PRN Reason Stop Dose Admin Amlodipine Besylat e 5 mg 07/11/21 09:00 07/11/21 08:47 Amlodipine 5 Mg Tablet PO 5 mg DAILY MARTHA Administration Aspirin 81 mg 07/11/21 09:00 07/11/21 08:11 Aspirin 81 Mg Ec Tablet PO 81 mg DAILY MARTHA Administration Atorvastatin Calci um 40 mg 07/11/21 09:00 07/11/21 08:11 Atorvastatin 40 Mg Tablet PO 40 mg DAILY [facility]THA Administration Enoxaparin Sodium 100 mg 07/10/21 16:30 07/11/21 03:54 Enoxaparin 100 M g/Ml Syringe SUBCUT 100 mg Q12H MARTHA Administration Hydralazine HCl 10 mg 07/10/21 13:35 07/11/21 08:12 Hydralazine 20 M g/Ml Inj 1 Ml IVP 10 mg Q4H PRN Administration SBP above 160 Insulin Human Lisp ro 0 unit 07/10/21 18:00 07/11/21 08:07 Insulin Lispro 1 00 Unit/1 Ml SUBCUT Not Given [facility] Protocol Vitals/I&O/Wt Last Vital Signs Temp 97.9 F 07/11/21 11:25 Pulse 109 H 07/11/21 11:25 Resp 17 07/11/21 11:25 BP 138/93 07/11/21 11:25 Pulse Ox 93 07/11/21 11:25 07/10/21 07/11/21 07/11/21 22:59 06:59 14:59 Intake Total 720 / 720 340 / 1060 Balance 720 / 720 340 / 1060 Weight last 48 hrs Weight 106.594 kg Physical Exam Narrative: EXAM NARRATIVE: The patient is awake alert oriented. No acute distress. Mood and affect are appropriate. Responses are adequate. Skin is warm and dry. Moist extremities. Neck supple. No JVD Lungs are clear to auscultation bilaterally. Heart S1, S2, regular Abdomen soft, nontender, bowel sounds are present Extremities no edema sinus or calf tenderness bilaterally Eyes PERRL, extraocular muscles are intact. Normal speech. Neuro examination is nonfocal. Data : 07/11/21 04:48 07/11/21 04:48 A&P Assessment and plan (1) Non-ST elevation ID (NSTEMI): Status: Acute (2) Hypertension: Status: Acute Qualifiers: Hypertension type: primary hypertension Qualified Code(s): I10 - Essential (primary) hypertension (3) Prediabetes: Status: Acute Additional A&P Information 46-year-old male with chest pain, possible inferior leads ischemic changes, elevated troponin. Non-ST elevation ID. The patient is going for cardiac catheterization today. We will continue current management with aspirin, full dose of Lovenox, statin, Coreg, Plavix. Appreciate Dr. Madrid's input. Hypertensive urgency. Medications are adjusted. Blood pressure is better today. Diabetes. We will continue insulin sliding scale. Will discuss maintenance medications prior to discharge Dyslipidemia,. Statin. Also discussed diet control with him. DVT prophylaxis. Lovenox. CODE STATUS. full code. The plan of care was discussed with the patient and his . They verbalized understanding and satisfaction with the conversation. Attestations Medical Necessity Statement*: Possible discharge home tomorrow. Coding Level of Care Code Acute Manufacturing Teacher for Ellen Alcala Diagnoses Non-ST elevation ID (NSTEMI) I21.4 Hypertension I10 Hypertension type: primary hypertension Prediabetes R73.03
[2021-07-11] MEDS: clopidogrel 75 mg Tablet PO (15:24)
[2021-07-11] MEDS: nitroglycerin 1 gm/inch oint Pkt 1 INCH TOPICAL ×2 (15:25→21:32)
--- NOTE | 2021-07-11 15:59 | XACV_ITS ---
Exam Room: [facility] Ht: 183 cm Wt: 107 kg BSA: 2.36 m2 Gender: Male : 1975 Exam Priority: Routine Procedure(s): Procedure Description: Diagnostic procedure Procedure Description: PCI procedure Procedure Description: Left Heart Catheterization Procedure Description: Left ventriculography Procedure Description: Coronary IVUS Procedure Description: Drug Eluting Coronary Stent Procedure Description: PTCA Procedure Description: Miscellaneous Procedure Description: ACT Procedure Description: Coronary Angiography Julius JON; Diagnostic Cath Status: Urgent Diagnostic Findings * Coronary angiography shows right dominance. * The left main is a medium caliber vessel with no significant stenotic lesions. * The left anterior descending artery is a medium caliber vessel which appears to taper off towards the LV apex. The mid segment of the artery was found to have minimal intimal irregularities. Distal segment of the artery was found to have 20 to 30% diffuse narrowing. No other significant stenotic lesions were seen. The first diagonal branch was found to have proximal around 50% stenosis. * There is left circumflex artery is a medium caliber vessel. There is a tapering narrowing of around 30 to 40% with the first obtuse marginal branch. The first obtuse marginal artery was found to have around 60% proximal narrowing including the ostium. One of the bifurcation branches of the second obtuse marginal artery was found to have around 40- 50% narrowing, proximally. No other significant stenotic lesions were seen. * The intermedius artery was found to have proximal around 40 to 50% tubular narrowing. * The right coronary artery is a electively large caliber dominant vessel which was found to have around 95% ulcerated lesion proximally. The distal artery, before the bifurcation was found to have diffuse intimal irregularities. No other significant stenotic lesions were seen. PCI Status: Urgent PCI Indication: NSTE - ACS Interventional Findings * Procedure detail: We engaged RCA with a JR4 guide catheter. 0.014 run-through guidewire was used to cross the lesion on well supported and PLV branch after obtaining an ACT of more than 250 s. We then performed IVUS of the lesion and distal reference diameter was measured to be around 5.0mm. We then proceeded with predilation of the lesion with 3.0 x 12 mm semicompliant balloon. This was followed by placement of 4.5 x 18 mm resolute [place] drug-eluting stent. Post stenting IVUS was performed that showed good expansion of the stent however there was some mall apposition of the distal segment. We postdilated the stent with a 5.0 x 15 mm NC balloon. At this point we obtained final angiogram that showed excellent stent expansion, DAINA-3 flow and no residual stenosis. Guidewire and guide catheter were removed. Patient left the Trade Show Coordinator in a stable condition.. Conclusions 1. 46-year-old white male with history of hypertension, type 2 diabetes, dyslipidemia, presenting with recurrent episodes of chest pain. Clinical features are consistent with unstable angina complicated with non-ST relation myocardial infarction. For further evaluation of his coronary status, a cardiac catheterization was recommended. Patient underwent left heart catheterization with left and right coronary angiogram and LV angiogram today. The findings are as follows. 2. High-grade, around 95% ulcerated lesion in the right coronary artery proximally. Mild to moderate diffuse disease in the other vessels. Normal LV ejection fraction 55%. LVEDP of 21 mmHg. 3. Based on the above angiographic findings, it was thought to be appropriate to consider PCI of the RCA lesion. I discussed and reviewed the cardiac catheterization data with Dr. Delcid. Dr. Delcid concurred with this plan and took over further management of this patient, at this point. 4. Successful revascularization of RCA with STEPHEN x1. Recommendations * Transfer to [facility]. * Dual antiplatelet therapy for at least 1 year. * Aggressive risk factor modification. * High intensity statin therapy. * Outpatient cardiology follow-up with nurse practitioner in [address] Madrid in 1 month. Interventional RX Recommendation: PCI w/o planned CABG Diagnostic RX Recommendation: PCI w/o planned CABG Anticoagulation: Heparin Ventriculography Ejection Fraction: 55.0 % LV EDP: 21 mmHg Left Ventriculography Findings: * The LV gram was performed in the MARTIN projection. The LV cavity appears to be of normal size. There is mild hypokinesia of the inferior wall segment. Overall LV ejection fraction is around 55%. No significant mitral valve prolapse or mitral regurgitation. Pressures Phase:Rest AO : 136 / 72 ( 104 ) @ 2:19:00 PM 110 / 91 ( 101 ) @ 2:28:00 PM 84 / 63 ( 57 ) @ 2:28:00 PM 139 / 88 ( 107 ) @ 2:33:00 PM 144 / 85 ( 107 ) @ 2:33:00 PM 99 / 73 ( 86 ) @ 2:44:00 PM 110 / 82 ( 96 ) @ 3:00:00 PM LV : 154 / -2 / 21 @ 2:31:00 PM 143 / 5 / 31 @ 2:32:00 PM 150 / 3 / 32 @ 2:33:00 PM Valves Phase:DefaultPhase AV : 10.0 @ 5:14:15 PM AV Mean Gradient: 14.0 @ 5:14:15 PM 14.0 @ 5:14:15 PM Clinical Evaluation EBL: 5mL-10mL Procedural Details Procedure Consent Obtained. Admit Source: In Patient. Pre-Procedure Time Out. Identified patient by full name and date of as verbalized by the patient/guarantor. Does the consent match the physician's order: Yes. Accurate & Complete Informed Consent: Yes. Inpatient/Outpatient History & Physical on Chart: Yes. Visualize and Verify Site with Patient/Guarantor: N/A. Relevant Radiology Images available: N/A. Pre-op teaching completed and patient verbalized understanding. The risks, benefits, and alternatives of sedation and/or procedure were discussed by physician. The patient agrees to continue. Procedure started. [facility] Clinical Fraility Score: 2: Well. Trade Show Coordinator Indications: Worsening Angina. Chest Pain Symptom Assessment: Atypical Angina. Correct patient, site and procedure confirmed by cath team. Current diagnosis: NSTEMI. PERRLA. Strong, equal hand audiovisual aids technician bilaterally. Lungs clear x 5 lobes. IV Site on Arrival: 20 gauge in the right anticubital. IV Fluids: 0.9% NaCl at KVO. 200 mL infused prior to ammunition assembly i laborer. Pre Procedural Pulses: bilateral radial was 3+. Oxygen started at 2liters/min via nasal canula. right radial was prepped with chloroprep then draped in the usual sterile fashion. bilateral groins was prepped with chloroprep then draped in the usual sterile fashion. Physician notified. Baseline sample Acquired. HR: 106 BPM. Physician arrived. Physician scrubbed in. Immediate Pre-Procedure Time Out. Correct Patient: Yes; Correct Procedure: Yes; Correct Site: Yes; Correct Patient Position: Yes; Correct Supplies: Yes; Dried Flammable Prep: Yes; Blood Products Available: n/A. Lidocaine 1% infiltrated to the right radial. Arterial access obtained. A 5 niuean Manpreet catheter in over wire. Multiple views taken of left coronary artery. Dr Delcid notified to review films. Catheter redirected to the RCA. Catheter out. A 5 niuean JR4 catheter in over wire. Catheter out. Multiple views taken of right coronary artery. A 5 niuean Angled Pig catheter in over wire. EDP Sample taken: LV 154/-3,21; HR: 63 BPM; SpO2: 91%. LV gram performed in MARTIN @ 10 mL/second for a total of 30 mL. EDP Sample taken: LV 143/5,31; HR: 89 BPM; SpO2: 94%. Pullback taken: LV 150/3,32; AO 139/88(107); Mean: 14mmHg, Peak to Peak: 10mmHg, SEP: 20sec/min; HR: 91 BPM; SpO2: 94%. Catheter out. Physician scrubbed out. Physician review of cine films. AP pads placed on patient. Dr. Delcid scrubbed in to perform intervention. Patient's family updated. 6 niuean JR 4 guide catheter was inserted over the wire. Runthrough guidewire was advanced through the guide catheter to lesion in the mid RCA. IVUS catheter inserted past mid RCA lesion. IVUS performed. IVUS catheter removed. Balloon inserted to lesion in the mid RCA. Inflation number : 1 A TREK [id number] RX BALLOON was prepped and advanced across the Mid RCA , then inflated to 14 MAKEDA for 0:27 seconds. Balloon out. Inflation Number : 2 A ISABEL Camacho YANET 4.5X18 STEPHEN -Lot Number# [id number] Exp 01/06/2022 was prepped and advanced across the Mid RCA. The stent was deployed at 14 MAKEDA for 0:25 seconds. Stent balloon out over wire. IVUS catheter inserted. IVUS performed of Mid RCA. IVUS catheter removed. Stent inserted to lesion in the mid RCA. Results checked. Balloon inserted to lesion in the mid RCA. Inflation number : 3 A ISABEL DANIELS EUPHORA RX [id number] BALLOON was prepped and advanced across the Mid RCA , then inflated to 14 MAKEDA for 0:27 seconds. Balloon out. Wire out. Results checked. Guide catheter out. Medication's Wasted: Lidocaine 1% = 18 mL. Medication's Wasted: Nitro = 49.6 mg. Post Procedure: Pulses reassessed and unchanged. PERRLA. Strong, equal hand audiovisual aids technician bilaterally. No VTE prophylaxis required. Total IV fluids: 100 mL. ACT drawn. Results 223 seconds. Therapeutic limits - pre-heparin administration 90-150 seconds and monitoring heparin during a vascular procedure >250 seconds. PCI Indication: NSTE. Post-op diagnosis: Severe RCA stenosis. Complications: none. Estimated blood loss: 5mL-10mL. Responsiveness - Normal response to verbal stimuli; alert and oriented, PERRLA. Airway - Unaffected, no intervention required; spontaneous ventilation. Circulation: W/N/L, pulses unchanged. Nausea/Vomiting: No. Procedure completed. A TR Band was successful obtaining hemostatsis at the Right Radial artery insertion site. Patient transferred by wheelchair to 1st floor. Vital chart was stopped. Access Site Site: Right Radial artery Sheath Size: 6 Fr Hemostasis Method: TR Band Hemostasis Success: Successful Procedure Medications Start: 4:07 PM Stop: 4:07 PM Medication: Fentanyl Amount: 50 mcg Route: I.V. Start: 4:09 PM Stop: 4:09 PM Medication: Versed Amount: 1 mg Route: I.V. Start: 4:17 PM Stop: 4:17 PM Medication: Verapamil Amount: 5 mg Route: I.A. Start: 4:17 PM Stop: 4:17 PM Medication: Nitrogylcerin Amount: 200 mcg Route: I.A. Start: 4:20 PM Stop: 4:20 PM Medication: Heparin Amount: 5000 units Route: I.V. Start: 4:23 PM Stop: 4:23 PM Medication: Versed Amount: 1 mg Route: I.V. Start: 4:24 PM Stop: 4:24 PM Medication: Fentanyl Amount: 50 mcg Route: I.V. Start: 4:43 PM Stop: 4:43 PM Medication: Heparin Amount: 5000 units Route: I.V. Start: 4:51 PM Stop: 4:51 PM Medication: Heparin Amount: 1000 units Route: I.V. Start: 5:04 PM Stop: 5:04 PM Medication: Nitrogylcerin Amount: 200 mcg Route: I.A. I, the attending physician, have reviewed and verified all procedure medications. Yes, all medications given per verbal order History/Risk Factors Hypertension: Yes Dyslipidemia: Yes Peripheral Arterial Disease (PAD): No Myocardial Infarction (SD): No Obesity: Yes Renal Disease: No Prior Interventions PCI: No CABG: No Valve Surgery: No Report Signatures Interventional Workflow Finalized by Shaun Delcid MD on 07/13/2021 08:13 AM Diagnostic Workflow Finalized by Dr Elizabeth Madrid MD [facility] on 07/12/2021 02:01 PM
--- NOTE | 2021-07-11 16:09 | W.PM.OPSUD ---
Surgery/Procedure H&P Update DATE OF PROCEDURE: July 11, 2021 DATE H&P PERFORMED: 07/10/21 H&P UPDATE INFORMATION: I have reviewed H&P completed within last 30 days, I have examined patient prior to procedure and No changes to prior documentation PREOP DIAGNOSIS: NSTEMI PRIMARY INDICATION FOR PROCEDURE: ACS PATIENT REASSESSED PRIOR TO SEDATION, WITH NO CHANGE NOTED: Yes PHYSICAL EXAM: alert, oriented x 3, clear to auscultation bilaterally and regular rate & rhythm AIRWAY EVAL/ANESTHESIA PLAN: normal airway, see other exam findings, ASA III, Monitored Anesthesia, Local Anesthesia, Risks, benefits & alternatives of sedation and/or procedure discussed and Patient agrees to continue as planned
[2021-07-11] MEDS: carvedilol 3.125 mg Tablet 6.25 MG PO (19:04)
[2021-07-11 20:10] LABS: Glucose Point of Care 178 mg/dL (70-110)
--- NOTE | 2021-07-11 22:00 | PC.NURSE ---
Patient TR Band removed after 2ml of air removed every 15 minutes. Patient denies pain, no hematoma noted. VSS. Will continue to monitor.
[2021-07-12 04:00] VITALS: BP 123/75; PULSE 101; RESP 23; TEMP 36.9; O2SAT 94
[2021-07-12 05:10] VITALS: PULSE 77
[2021-07-12 06:05] LABS: Albumin Level 4.2 g/dL (3.5-5.2); Anion Gap 16.9 (5-19); Blood Urea Nitrogen 14 mg/dL (6-20); Calcium 8.7 mg/dL (8.5-10.5); Carbon Dioxide 21 mmol/L (22-29); Chloride 104 mmol/L (98-107); Glomerular Filtration Rate 104.1 mL/min (90-130); Glucose 121 mg/dL (65-115); Phosphorus 3.3 mg/dL (2.5-4.5); Potassium 3.9 mmol/L (3.5-5.1); Sodium 138 mmol/L (136-145)
[2021-07-12 06:08] LABS: Magnesium 1.8 mg/dL (1.7-2.3)
[2021-07-12] MEDS: carvedilol 3.125 mg Tablet 6.25 MG PO (06:14)
[2021-07-12 06:34] LABS: Glucose Point of Care 129 mg/dL (70-110)
--- NOTE | 2021-07-12 07:27 | PC.NURSE ---
Shift Note Frequent safety and comfort rounds continue. Orders and/or nursing care completed as indicated. Patient monitored for response to intervention and treatment(s). Education provided included Coreg as a new medication he was given. Patient and/or customer operations representative verbalized understanding.. Will continue to monitor.
--- NOTE | 2021-07-12 09:40 | PC.CHAP ---
Pastoral Care Encounter/Spiritual Assessment Type of Contact [] Declined supervisor chassis assembly visit [] Patient/Family/Request visit [] Outpatient visit [] Follow-up visit [] Physician referral [] Code/Alert [x] Routine visit [] Staff referral [] Actively dying [] Patient sleeping [x] Family support [] [] Out of room [] Palliative care [] [] Receiving care in room [] Pre-surgical visit [] Trauma [] Long length of stay [] ICU visit [] Other: Relational/Emotional Strength [] Patient feels connected with others/family/visitors/staff [] Distress [] Loneliness/isolation [] Abandonment Spirituality of Patient [] Person of Sunshine [] Attends Religious of their Sunshine [] Believes in Prayer [] Reads Bible or Presybeterian materials [] There are Spiritual issues to be addressed Water Main Installer Helper Interventions [x] Prayer [] Active listening [] Non-anxious presence [] Spiritual/emotional support [] Crisis/trauma care [] Spiritual counseling [] Bereavement support [] Provided bereavement packet [] Provided Bible/devotional materials [] Provided toy/stuffed animal, coloring book to patient or family member [] Provided Communion [] Anointing/[place] [] Salvation [x] Completed spiritual assessment [] Other: Impact on Illness or Injury [] Angry [] Fearful [] Anxious [] Often cries [] Exhaustion [] Unable to work [] Unable to attend baptist [] Unable to walk/stand [] Unable to read [] Unable to drive [] Unable to eat/drink [] Unable to sleep [] Unable to be with family [] Patient intubated [] Other: Summary patient of another sunshine.. prayed outside room.. resting well, feeling so much better Time spent with patient 5 mn
--- NOTE | 2021-07-12 09:47 | PM.PN ---
Subjective Subjective: Interval history: Patient is feeling much better. The cardiac catheterization yesterday revealed high-grade lesion of the proximal right coronary artery. This was intervened. He had a mild to moderate diffuse disease on the left coronary arteries. Currently denies any chest pain or chest tightness. No shortness of breath. No fever or chills. No other specific complaints. Medications: Reviewed: Yes Medication Review Details: Current Medications Acetaminophen (Acetaminophen 325 Mg Tablet) 650 mg PO Q6H PRN PRN Reason: MILD PAIN Al Hydrox/Mg Hydrox/Simethicone (Lgus-Giq-Garmycsvo-Antonia 30 Ml Udc) 30 ml PO Q15M PRN PRN Reason: INDIGESTION Amlodipine Besylate (Amlodipine 5 Mg Tablet) 5 mg PO DAILY REPLACED BY [facility] Last Admin: 07/11/21 08:47 Dose: 5 mg Documented by: Aspirin (Aspirin 81 Mg Ec Tablet) 81 mg PO DAILY REPLACED BY [facility] Last Admin: 07/11/21 08:11 Dose: 81 mg Documented by: Atorvastatin Calcium (Atorvastatin 40 Mg Tablet) 40 mg PO DAILY REPLACED BY [facility] Last Admin: 07/11/21 08:11 Dose: 40 mg Documented by: Atropine Sulfate (Atropine 1 Mg/Ml Sdv 1 Ml) 0.5 mg IVP PRN PRN PRN Reason: Symptomatic bradycardia Carvedilol (Carvedilol 3.125 Mg Tablet) 6.25 mg PO Q12H REPLACED BY [facility] Last Admin: 07/12/21 06:14 Dose: 6.25 mg Documented by: Clopidogrel Bisulfate (Clopidogrel 75 Mg Tablet) 75 mg PO DAILY REPLACED BY [facility] Last Admin: 07/11/21 15:24 Dose: 75 mg Documented by: Dextrose (Dextrose 50% Syringe 50 Ml) 25 ml IVP ONCE PRN; Protocol PRN Reason: hypoglycemia protocol Dextrose (Dextrose 50% Syringe 50 Ml) 50 ml IVP PRN PRN; Protocol PRN Reason: hypoglycemia protocol Fentanyl (Fentanyl 50 Mcg/Ml Inj 2ml) 50 mcg IVP PRN PRN PRN Reason: Prior to sheath removal Glucagon (Glucagon 1 Mg/Ml Inj 1 Ml) 1 mg IM ONCE PRN; Protocol PRN Reason: Adult Acute Hypoglycemia Prot. Hydralazine HCl (Hydralazine 20 Mg/Ml Inj 1 Ml) 10 mg IVP Q4H PRN PRN Reason: SBP above 160 Last Admin: 07/11/21 08:12 Dose: 10 mg Documented by: Dextrose (D5w) 500 mls @ 100 mls/hr IV ONCE PRN; Protocol PRN Reason: Adult Acute Hypoglycemia Prot Sodium Chloride (Sodium Chloride 0.9%) 1,000 mls @ 100 mls/hr IV .Q10H REPLACED BY [facility] Last Admin: 07/12/21 06:06 Dose: Not Given Documented by: Insulin Human Lispro (Insulin Lispro 100 Unit/1 Ml) 0 unit SUBCUT WM&BEDTIME MARTHA; Protocol Last Admin: 07/12/21 07:32 Dose: Not Given Documented by: Magnesium Hydroxide (Magnesium Hydroxide 30 Ml Udc) 30 ml PO DAILY PRN PRN Reason: CONSTIPATION Naloxone HCl (Naloxone 0.4 Mg/Ml Sdv) 0.1 mg IVP Q2M PRN PRN Reason: RESPIRATORY RATE < 8/MIN Nitroglycerin (Nitroglycerin 1 Gm/Inch Oint Pkt) 1 inch TOPICAL Q6H REPLACED BY [facility] Last Admin: 07/12/21 06:06 Dose: Not Given Documented by: Nitroglycerin (Nitroglycerin 0.4 Mg Sublingual Tablet) 0.4 mg SUBLINGUAL Q5M PRN PRN Reason: CHEST PAIN Ondansetron HCl (Ondansetron 2 Mg/Ml Sdv 2 Ml) 4 mg IVP Q6H PRN PRN Reason: vomiting, or N/V if npo Temazepam (Temazepam 15 Mg Capsule) 15 mg PO BEDTIME PRN PRN Reason: INSOMNIA Zolpidem Tartrate (Zolpidem 5 Mg Tablet) 5 mg PO BEDTIME PRN PRN Reason: INSOMNIA Vitals/I&O/Wt Last Vital Signs Temp 98.4 F 07/12/21 04:00 Pulse 77 07/12/21 05:10 Resp 23 H 07/12/21 04:00 BP 123/75 07/12/21 04:00 Pulse Ox 94 07/12/21 04:00 07/11/21 07/12/21 07/12/21 22:59 06:59 14:59 Intake Total 480 / 480 80 / 560 Balance 480 / 480 80 / 560 Physical Exam Narrative: EXAM NARRATIVE: GENERAL: The patient is alert and oriented times three. Not in any acute distress. HEENT: No significant pallor, icterus or lymphadenopathy. The pupils are symmetrical. Oral cavity: There are no mucous membrane lesions. NECK: Trachea appears to be central. No masses noted. No JVD or thyromegaly appreciated. No carotid bruit. RESPIRATORY: Chest is symmetrical. No intercostals muscle retraction or any accessory muscle activation. There is no chest wall tenderness. Breath sounds are heard bilaterally. No rales or rhonchi heard. No evidence of any consolidation. BREASTS: Deferred. HEART: No palpable precordial events. S1 and S2 are normal. No S3 or S4 heard. No pericardial rub or any click heard. ABDOMEN: No vessel pulsations or distention. No tenderness. No organomegaly appreciated. No abdominal bruit. Bowel sounds are normally heard. : Deferred. RECTAL: Deferred. LYMPHATIC: No lymphadenopathy noted in the neck or groin. EXTREMITIES: The arterial puncture site has minimal ecchymosis. No hematoma or bleeding. MUSCULOSKELETAL: No acute joint deformities or swelling] SKIN: There are no significant scars or skin rash noted. NEUROPSYCHIATRIC: The patient is alert and oriented x3. Appears to be in a good mood. The higher functions are grossly within normal limits. No tremors or rigidity noted. Data : 07/11/21 04:48 07/12/21 04:24 Other Labs: Laboratory Last Values WBC 8.8 10^3/uL (4.0-10.0) 07/11/21 04:48 RBC 5.47 10^6/uL (4.1-5.3) H 07/11/21 04:48 Hgb 16.2 g/dL (11.7-16.6) 07/11/21 04:48 Hct 48.3 % (42.0-52.0) 07/11/21 04:48 MCV 88.3 fl (80-94) 07/11/21 04:48 MCH 29.6 pg (28.0-34.0) 07/11/21 04:48 MCHC 33.5 g/dL (30.0-36.0) 07/11/21 04:48 RDW 12.2 % (12.1-15.1) 07/11/21 04:48 Plt Count 205 10^3/cmm (130-400) 07/11/21 04:48 MPV 11.0 fL (7.4-10.4) H 07/11/21 04:48 Neut % (Auto) 59.8 % 07/11/21 04:48 Lymph % (Auto) 30.2 % 07/11/21 04:48 [place] % (Auto) 7.2 % 07/11/21 04:48 Eos % (Auto) 1.5 % 07/11/21 04:48 Baso % (Auto) 0.6 % 07/11/21 04:48 Neut # (Auto) 5.29 10^3/uL (1.8-7.7) 07/11/21 04:48 Lymph # (Auto) 2.7 10^3/uL (0.8-4.8) 07/11/21 04:48 [place] # (Auto) 0.6 10^3/uL (0.2-0.9) 07/11/21 04:48 Eos # (Auto) 0.1 10^3/uL (0.0-0.8) 07/11/21 04:48 Baso # (Auto) 0.1 10^3/uL (0.0-0.1) 07/11/21 04:48 Nucleated RBC % (auto) 0 % 07/11/21 04:48 Nucleated RBCs # 0.0 /100WBC 07/11/21 04:48 PT 13.00 SECONDS (12.1-14.9) 07/10/21 13:23 INR 0.95 (0.8-1.2) 07/10/21 13:23 APTT 29.6 SECONDS (23.9-36.7) 07/10/21 13:23 Sodium 138 mmol/L (136-145) 07/12/21 04:24 Potassium 3.9 mmol/L (3.5-5.1) 07/12/21 04:24 Chloride 104 mmol/L (98-107) 07/12/21 04:24 Carbon Dioxide 21 mmol/L (22-29) L 07/12/21 04:24 Anion Gap 16.9 (5-19) 07/12/21 04:24 BUN 14 mg/dL (6-20) 07/12/21 04:24 Creatinine 0.8 mg/dL (0.7-1.2) 07/12/21 04:24 GFR Calculation 104.1 mL/min (90-130) 07/12/21 04:24 Glucose 121 mg/dL (65-115) H 07/12/21 04:24 POC Glucose 129 mg/dL (70-110) H 07/12/21 06:23 Estimat Average Glucose 148 07/10/21 11:35 Hemoglobin A1c 6.8 % (4.0-6.0) H 07/10/21 11:35 Calculated Osmolality 292 mOsm/kg (285-295) 07/11/21 04:48 Calcium 8.7 mg/dL (8.5-10.5) 07/12/21 04:24 Phosphorus 3.3 mg/dL (2.5-4.5) 07/12/21 04:24 Magnesium 1.8 mg/dL (1.7-2.3) 07/12/21 04:24 Total Bilirubin 1.1 mg/dL (0.15-1.2) 07/11/21 04:48 AST 21 U/L (0-40) 07/11/21 04:48 ALT 20 U/L (0-41) 07/11/21 04:48 Alkaline Phosphatase 52 IU/L (40-130) 07/11/21 04:48 Troponin T Gen 5 ng/L 89 ng/L (0-15) H 07/11/21 09:22 Troponin T Baseline 57 ng/L (0-15) H 07/10/21 11:35 Troponin T 120 Minute 123.2 ng/L (0-15) H 07/10/21 13:23 Delta Troponin T 66.2 ABS# (0-10) H* 07/10/21 13:23 Total Protein 7.3 g/dL (6.6-8.7) 07/11/21 04:48 Albumin 4.2 g/dL (3.5-5.2) 07/12/21 04:24 Globulin 3.0 g/dL (1.3-4.6) 07/11/21 04:48 Triglycerides 873 mg/dL (0-150) H 07/11/21 04:48 Cholesterol 336 mg/dL (0-200) H 07/11/21 04:48 LDL Cholesterol Direct 147 mg/dL (0-100) H 07/11/21 04:48 LDL Cholesterol, Calc Not Reportable 07/11/21 04:48 HDL Cholesterol 33 mg/dL (60-100) L 07/11/21 04:48 LDL/HDL Ratio Not Reportable 07/11/21 04:48 Cholesterol/HDL Ratio 10.18 mg/dL (1.0-5.00) H 07/11/21 04:48 Coronavirus 229E (PCR) Not detected (NOT DETECT) 07/10/21 15:45 SARS-CoV-2 (PCR) Not detected (NOT DETECT) 07/10/21 15:45 A&P Assessment and plan (1) Acute coronary syndrome: Patient status post PCI of the right coronary artery lesion. Currently seems to be stable. We will continue on the aspirin, Plavix, beta-emilia, statin and other symptomatic measures Status: Acute (2) Prediabetes: Management as per the primary Status: Acute (3) Non-ST elevation ID (NSTEMI): Please refer to the angiogram report from yesterday for details. Importance of diet, exercise and medications were discussed. Status: Acute (4) Benign essential HTN: Currently the blood pressure is in the normal range. May continue on the current medications Status: Acute (5) Dyslipidemia: May continue on the current medication Status: Acute Additional A&P Information If the patient continues remain stable, may be discharged home today. May continue on the current medications including the Plavix and aspirin. Need to be seen in the office next week by the nurse practitioner. I may see him in the office in 3 weeks. Attestations Medical Necessity Statement*: Possible discharge home today Coding Level of Care Code Acute Form Builder Helper for Ellen Alcala History Detailed Exam Detailed Medical Decision Making Moderate Complexity Diagnoses Acute coronary syndrome I24.9 Prediabetes R73.03 Non-ST elevation ID (NSTEMI) I21.4 Benign essential HTN I10 Dyslipidemia E78.5
[2021-07-12] MEDS: clopidogrel 75 mg Tablet PO (10:13)
[2021-07-12] MEDS: aspirin 81 mg EC Tablet PO (10:13)
[2021-07-12] MEDS: amlodipine 5 mg Tablet PO (10:13)
[2021-07-12] MEDS: atorvastatin 40 mg Tablet PO (10:14)
--- NOTE | 2021-07-12 10:48 | P.DS_ITS ---
Discharge Providers Date of Admission: 07/11/21 09:38 Date of Discharge: July 12, 2021 Attending Provider at Admission: Teto Salinas Attending Provider at Discharge: Teto Salinas Primary Care Provider: Lakisha Perez MD Diagnoses at Discharge Discharge Diagnosis (1) Acute coronary syndrome: Status: Acute (2) Prediabetes: Status: Acute (3) Non-ST elevation ND (NSTEMI): Status: Acute (4) Benign essential HTN: Status: Acute (5) Dyslipidemia: Status: Acute Reason for Visit Reason for Visit: CHEST PAIN Hospital Course Hospital Course 46-year-old male presented with chest pain, possible inferior leads ischemic changes, elevated troponin. Non-ST elevation ND. The patient was seen and evaluated by Dr. Madrid. The patient underwent cardiac catheterization which revealed severe mid RCA stenosis. The patient received drug-eluting stent. He was started on dual antiplatelet therapy, statin, blood pressure medications. Currently doing very well. Symptoms have resolved. He is cleared for discharge home by cardiology. He will continue outpatient follow-up with the electrical prospecting observer and with his primary care physician. Discharge instructions are discussed in length. He and his verbalized understanding and agreement. Hypertensive urgency. Medications are adjusted. Blood pressure is better today. He will be discharged on amlodipine and Coreg. Further adjustments might be necessary Diabetes. Being discharged on Metformin. He will follow-up with his primary care physician for further adjustments and outpatient instructions for long-term management. Dyslipidemia,. Statin. He will need repeat lipid panel and CMP in couple of weeks. DVT prophylaxis. Received Lovenox. Physical Exam Narrative: EXAM NARRATIVE: The patient is awake alert oriented. No acute distress. Mood and affect are appropriate. Responses are adequate. Skin is warm and dry. Moist extremities. Neck supple. No JVD Lungs are clear to auscultation bilaterally. Heart S1, S2, regular Abdomen soft, nontender, bowel sounds are present Extremities no edema sinus or calf tenderness bilaterally Eyes PERRL, extraocular muscles are intact. Normal speech. Neuro examination is nonfocal. Discharge Data Data Completed and Pending: Completed Studies During Hospitalization Category Date Time Status XR chest 1V rey ble [id number] Urgent Exams 07/10/21 09:22 Completed CV. echo complete * [id number] Routine Ultrasound 07/10/21 13:20 Completed Pending at discharge Category Date Time Status [employer] request for service Routin e Exams 07/11/21 15:59 Taken Labs from last 24 hours 07/12/21 07/12/21 07/12/21 06:23 04:24 04:24 Sodium 138 Potassium 3.9 Chloride 104 Carbon Dioxide 21 L Anion Gap 16.9 BUN 14 Creatinine 0.8 GFR Calculation 104.1 Glucose 121 H POC Glucose 129 H Calcium 8.7 Phosphorus 3.3 Magnesium 1.8 Albumin 4.2 07/11/21 07/11/21 19:29 11:24 Sodium Potassium Chloride Carbon Dioxide Anion Gap BUN Creatinine GFR Calculation Glucose POC Glucose 178 H 206 H Calcium Phosphorus Magnesium Albumin Laboratory Results WBC 8.8 10^3/uL (4.0- 10.0) 07/11/21 04:48 RBC 5.47 10^6/uL (4.1 -5.3) H 07/11/21 04:48 Hgb 16.2 g/dL (11.7-1 6.6) 07/11/21 04:48 Hct 48.3 % (42.0-52.0 ) 07/11/21 04:48 MCV 88.3 fl (80-94) 07/11/21 04:48 MCH 29.6 pg (28.0-34. 0) 07/11/21 04:48 MCHC 33.5 g/dL (30.0-3 6.0) 07/11/21 04:48 RDW 12.2 % (12.1-15.1 ) 07/11/21 04:48 Plt Count 205 10^3/cmm (130 -400) 07/11/21 04:48 MPV 11.0 fL (7.4-10.4 ) H 07/11/21 04:48 Neut % (Auto) 59.8 % 07/11/21 04:48 Lymph % (Auto) 30.2 % 07/11/21 04:48 [place] % (Auto) 7.2 % 07/11/21 04:48 Eos % (Auto) 1.5 % 07/11/21 04:48 Baso % (Auto) 0.6 % 07/11/21 04:48 Neut # (Auto) 5.29 10^3/uL (1.8 -7.7) 07/11/21 04:48 Lymph # (Auto) 2.7 10^3/uL (0.8- 4.8) 07/11/21 04:48 [place] # (Auto) 0.6 10^3/uL (0.2- 0.9) 07/11/21 04:48 Eos # (Auto) 0.1 10^3/uL (0.0- 0.8) 07/11/21 04:48 Baso # (Auto) 0.1 10^3/uL (0.0- 0.1) 07/11/21 04:48 Nucleated RBC % (a uto) 0 % 07/11/21 04:48 Nucleated RBCs # 0.0 /100WBC 07/11/21 04:48 PT 13.00 SECONDS (12 .1-14.9) 07/10/21 13:23 INR 0.95 (0.8-1.2) 07/10/21 13:23 APTT 29.6 SECONDS (23. 9-36.7) 07/10/21 13:23 Sodium 138 mmol/L (136-1 45) 07/12/21 04:24 Potassium 3.9 mmol/L (3.5-5 .1) 07/12/21 04:24 Chloride 104 mmol/L (98-10 7) 07/12/21 04:24 Carbon Dioxide 21 mmol/L (22-29) L 07/12/21 04:24 Anion Gap 16.9 (5-19) 07/12/21 04:24 BUN 14 mg/dL (6-20) 07/12/21 04:24 Creatinine 0.8 mg/dL (0.7-1. 2) 07/12/21 04:24 GFR Calculation 104.1 mL/min (90- 130) 07/12/21 04:24 Glucose 121 mg/dL (65-115 ) H 07/12/21 04:24 POC Glucose 129 mg/dL (70-110 ) H 07/12/21 06:23 Estimat Average Gl ucose 148 07/10/21 11:35 Hemoglobin A1c 6.8 % (4.0-6.0) H 07/10/21 11:35 Calculated Osmolal ity 292 mOsm/kg (285- 295) 07/11/21 04:48 Calcium 8.7 mg/dL (8.5-10 .5) 07/12/21 04:24 Phosphorus 3.3 mg/dL (2.5-4. 5) 07/12/21 04:24 Magnesium 1.8 mg/dL (1.7-2. 3) 07/12/21 04:24 Total Bilirubin 1.1 mg/dL (0.15-1 .2) 07/11/21 04:48 AST 21 U/L (0-40) 07/11/21 04:48 ALT 20 U/L (0-41) 07/11/21 04:48 Alkaline Phosphata se 52 IU/L (40-130) 07/11/21 04:48 Troponin T Gen 5 n g/L 89 ng/L (0-15) H 07/11/21 09:22 Troponin T Baselin e 57 ng/L (0-15) H 07/10/21 11:35 Troponin T 120 Min goldie 123.2 ng/L (0-15) H 07/10/21 13:23 Delta Troponin T 66.2 ABS# (0-10) H* 07/10/21 13:23 Total Protein 7.3 g/dL (6.6-8.7 ) 07/11/21 04:48 Albumin 4.2 g/dL (3.5-5.2 ) 07/12/21 04:24 Globulin 3.0 g/dL (1.3-4.6 ) 07/11/21 04:48 Triglycerides 873 mg/dL (0-150) H 07/11/21 04:48 Cholesterol 336 mg/dL (0-200) H 07/11/21 04:48 LDL Cholesterol Di rect 147 mg/dL (0-100) H 07/11/21 04:48 LDL Cholesterol, C alc Not Reportable 07/11/21 04:48 HDL Cholesterol 33 mg/dL (60-100) L 07/11/21 04:48 LDL/HDL Ratio Not Reportable 07/11/21 04:48 Cholesterol/HDL Ra sam 10.18 mg/dL (1.0- 5.00) H 07/11/21 04:48 Coronavirus 229E ( PCR) Not detected (NO T DETECT) 07/10/21 15:45 SARS-CoV-2 (PCR) Not detected (NO T DETECT) 07/10/21 15:45 Impressions Chest X-Ray 07/10/21 09:22 Impression: Negative chest. Vitals: Last Vital Signs Temp 98.4 F 07/12/21 04:00 Pulse 77 07/12/21 05:10 Resp 23 H 07/12/21 04:00 BP 123/75 07/12/21 04:00 Pulse Ox 94 07/12/21 04:00 Discharge Plan Discharge Patient Disposition: Home Condition: Stable Prescriptions: New amlodipine 5 mg Tablet 5 mg PO DAILY Qty: 30 RF: 0 aspirin 81 mg Tablet,Delayed Release (Dr/Ec) 81 mg PO DAILY Qty: 30 RF: 0 atorvastatin 40 mg Tablet 40 mg PO DAILY Qty: 30 RF: 0 clopidogrel 75 mg Tablet 75 mg PO DAILY Qty: 30 RF: 0 carvedilol 3.125 mg Tablet 6.25 mg PO Q12H Qty: 60 RF: 0 metformin 500 mg tablet 500 mg PO BID Qty: 60 RF: 0 Discharge Orders: Discharge Order (Routine); Ordered 07/12/21 Ordered By: Teto Salinas Other Ambulatory Orders: Comprehensive Metabolic Panel (Routine) Timeframe: 2 Weeks Facility: [facility] - Location: Lab - Main Lab Ordered By: Teto Salinas Lipid Panel (Routine) Timeframe: 2 Weeks Facility: [facility] - Location: Lab - Main Lab Ordered By: Teto Salinas Referrals: Lakisha Perez MD [Primary Care Provider] - 2 weeks Elizabeth Madrid MD [Physician] - 7-10 days Discharge Diet: Diabetic Discharge Activity: As per cardiac/pulm rehab instructions Patient Instructions: Opioid Safety Activity Restrictions/Additional Instructions: Please return to emergency room if you develop any new chest pain or discomfort, diaphoresis, shortness of breath, palpitations, dizziness or lightheadedness, any signs of bleeding or bruising or any other new symptoms. Please do not stop or change her medications without speaking with your doctors. Please monitor your blood sugar level daily. Please monitor your vital signs daily and report the numbers to your primary care physician regularly. Discharge Attestations Time Spent in Discharge Care*: greater than 30 min Quality Metrics Clinical Quality Measures During this hospital stay, did patient experience: AMI Clinical Trial Participant: No Contraindication to aspirin (AMI): Aspirin given Contraindication to statin: Statin prescribed Coding Level of Care Code Acute g [facility] note Diagnoses Acute coronary syndrome I24.9 Prediabetes R73.03 Non-ST elevation ND (NSTEMI) I21.4 Benign essential HTN I10 Dyslipidemia E78.5
[2021-07-12 10:58] VITALS: BP 126/81; PULSE 63; RESP 20; O2SAT 94
[2021-07-12 11:20] VITALS: BP 126/81; PULSE 63; RESP 20; O2SAT 94
[2021-07-12 12:03] VITALS: BP 123/88; PULSE 65; RESP 18; TEMP 36.8; O2SAT 95
--- NOTE | 2021-07-12 12:07 | PC.NURSE ---
Discharge Note Patient discharged to home via bed accompanied by . Discharge instructions reviewed with patient and/or benefits representative. Mobile pharmacy medications and/or prescriptions provided. Belongings/home medications returned.
== END 2021-07-12 12:04 | disposition home or self-care (01) | DRG 247 ==
LOC: ER 13:38 → MEDSURG 07-11 06:56 → CSU 07-11 17:23
PROVIDERS: Emergency Medicine; Internal Medicine; Internal Medicine Cardiovascular Disease; Admitting Provider Internal Medicine; Emergency Provider Physician Assistant; PCP Family Medicine; Visit Provider Internal Medicine
PROC: 027034Z Dilation of Coronary Artery, One Artery with Drug-eluting Intraluminal Device, Percutaneous Approach (ICD-10-PCS; principal; 2021-07-11 18:00)
DX: I21.4 Non-ST elevation (NSTEMI) myocardial infarction (principal); I24.9 Acute ischemic heart disease, unspecified; I25.10 Atherosclerotic heart disease of native coronary artery without angina pectoris; I10 Essential (primary) hypertension; I25.110 Atherosclerotic heart disease of native coronary artery with unstable angina pectoris; Z91.128 Patient's intentional underdosing of medication regimen for other reason; E11.9 Type 2 diabetes mellitus without complications; I16.0 Hypertensive urgency; E78.5 Hyperlipidemia, unspecified; Z82.49 Family history of ischemic heart disease and other diseases of the circulatory system
CPT/HCPCS: 36415; 36416; 71045; 80053; 80061; 80069; 82962; 83036; 83721; 83735; 84484; 85025; 85347; 85610; 85730; 87635; 92978; 93005; 93306; 93452; 96372; 99285; C1725; C1753; C1769; C1874; C1887; C1894; C9600; G0378; J0360; J1644; J1650; J2250; J3010; J3490; J7030; Q9967

== ENCOUNTER → 2021-07-19 09:15 | Outpatient (BNVA) | payer OTHER, SELFPAY | PROVIDERS: PCP Family Medicine; Visit Provider Nurse Practitioner Family | DX: I25.10 Atherosclerotic heart disease of native coronary artery without angina pectoris (principal) | CPT/HCPCS: 80048 ==

== ENCOUNTER 2022-07-13 15:01 | Outpatient (CLI) | payer OTHER, SELFPAY ==
--- NOTE | 2022-07-13 15:22 | XRR_ITS ---
PROCEDURE INFORMATION: Exam: XR Left Shoulder Exam date and time: 07/13/2022 3:34 PM Age: 47 years old Clinical indication: Pain; Shoulder; Bilateral; Additional info: Shoulder pain TECHNIQUE: Imaging protocol: Radiologic exam of the Left shoulder. Views: 2 or more views. COMPARISON: CR XR chest 1V portable [id number] 07/10/2021 9:49 AM FINDINGS: Bones/joints: Osseous structures are intact. Negative for fracture. Joint spaces are preserved. Soft tissues: Normal. XR/XR shoulder LT min 2V* [id number] IMPRESSION: No acute findings.
--- NOTE | 2022-07-13 15:22 | XRR_ITS ---
PROCEDURE INFORMATION: Exam: XR Right Shoulder Exam date and time: 07/13/2022 3:34 PM Age: 47 years old Clinical indication: Pain; Shoulder; Bilateral; Additional info: Shoulder pain TECHNIQUE: Imaging protocol: Radiologic exam of the Right shoulder. Views: 2 or more views. COMPARISON: CR XR chest 1V portable [id number] 07/10/2021 9:49 AM FINDINGS: Bones/joints: Osseous structures are intact. Negative for fracture. Joint spaces are preserved. Soft tissues: Normal. XR/XR shoulder RT min 2V* [id number] IMPRESSION: No acute findings.
== END 2022-07-13 15:02 | disposition home or self-care (01) ==
PROVIDERS: PCP Family Medicine; Visit Provider Emergency Medicine
DX: M25.512 Pain in left shoulder (principal); M25.511 Pain in right shoulder
CPT/HCPCS: 73030

== ENCOUNTER → 2023-02-13 14:51 | Outpatient (BNVA) | payer OTHER, SELFPAY | PROVIDERS: PCP Family Medicine; Visit Provider Internal Medicine Cardiovascular Disease | DX: R07.9 Chest pain, unspecified (principal); I25.119 Atherosclerotic heart disease of native coronary artery with unspecified angina pectoris; I10 Essential (primary) hypertension; R73.03 Prediabetes; R40.0 Somnolence | CPT/HCPCS: 93005 ==

== ENCOUNTER 2024-03-30 07:01 | Outpatient (CLI) | payer OTHER, SELFPAY ==
--- NOTE | 2024-03-30 07:13 | NMCV_ITS ---
NM zi perf SPECT r/s* [id number] Darshan Oakley Age: 48 Gender: M : 1975 Exam Date: 03/30/2024 07:51 Ordering Phys: Faustino Akers DO Technologist: DREW Travis Exam Location: [facility] Indications: cp STRESS TEST Please see separate stress test report in [facility] for full findings IMAGE PROTOCOL Rest/Stress 1 Lexiscan Day Radiopharmaceutical Dose (mCi) Administration Site Administered by Rest: Tc-99m 11 IV DREW Bravo Sestamibi Stress:Tc-99m 33 IV DREW Bravo Sestamibi Rest: 30-Mar-2024 60 Discovery 630 Stress: 30-Mar-2024 30 Discovery 630 0.4mg Lexiscan. Images obtained in supine and prone position. SPECT RESULTS Technical Quality: Good Raw Data Analysis: Normal Image Corrections: No attenuation or motion correction applied Summed Stress Score: 0 Summed Rest Score: 0 Summed Difference Score: 0 PERFUSION FINDINGS SPECT images demonstrate homogeneous tracer distribution throughout the myocardium. FUNCTIONAL RESULTS (calculated via Gated SPECT) Stress Image LV EF (%): 68 Stress EDV (mL):90 TID: 1.11 Stress ESV (mL):29 FUNCTIONAL FINDINGS: There is normal left ventricular systolic function. IMPRESSIONS 1. Normal myocardial perfusion imaging with no evidence of ischemia. 2. LV systolic function is normal Shaun Delcid MD (Electronically Signed) Final Date: 30 March 2024 09:58 S
--- NOTE | 2024-03-30 07:13 | ECG_ITS ---
[facility] Test Date: 2024-03-30 Pat Name: Darshan Oakley Department: Room: Gender: Male Pathology Assistant: Curt Maddox : 1975 Requested By: Faustino Smith Order Number: [id number] Leonardo MD: Shaun Delcid M.D. Interpretive Statements NAME OF STUDY: LEXISCAN SESTAMIBI STRESS TEST INDICATION: [CP, ] Procedure: At the baseline, the blood pressure was 119/75 mmHg with a heart rate of 68 bpm. The electrocardiogram showed normal sinus rhythm, normal axis with normal ST and T's. The Lexiscan was infused over a period of 20 seconds. A total of 0.4 mg of Lexiscan was infused. The stress phase was continued for a total of 5 minutes. Heart rate was at the end of stress phase was 90 bpm and a blood pressure of 116/71 mmHg. The EKG at the peak infusion revealed normal sinus rhythm with no significant ST-T wave changes. Sestamibi was injected 20 seconds after the Lexiscan infusion. Blood pressure at the end of recovery phase was 111/72 mmHg with a heart rate of 84 bpm. Conclusion: 1. Normal EKG response to Lexiscan infusion 2. No Lexiscan induced chest pain or cardiac arrhythmia. 3. Normal blood pressure and heart rate response. 4. Sestamibi/sestamibi perfusion scan pending; see separate report Electronically Signed On 03-31-2024 8:29:58 CDT by Shaun Delcid M.[email or web address]
[2024-03-30 07:14] VITALS: BMI 32.5
[2024-03-30] MEDS: regadenoson 0.4 Mg/5 ml Syringe IVP (08:35)
[2024-03-30 08:48] VITALS: BP 111/72; PULSE 84
== END 2024-03-30 07:02 | disposition home or self-care (01) ==
PROVIDERS: PCP Family Medicine; Visit Provider Emergency Medicine
DX: R07.89 Other chest pain (principal); Z86.79 Personal history of other diseases of the circulatory system
CPT/HCPCS: 36415; 78452; 93017; 96374; A9500; J2785

== ENCOUNTER → 2024-08-05 09:09 | Outpatient (BNVA) | payer OTHER, SELFPAY | PROVIDERS: PCP Family Medicine; Visit Provider Nurse Practitioner Family | DX: R00.0 Tachycardia, unspecified (principal); R94.31 Abnormal electrocardiogram [ECG] [EKG] | CPT/HCPCS: 93005 ==

== ENCOUNTER 2024-11-16 11:32 | Outpatient (CLI) | payer OTHER, SELFPAY | END 2024-11-16 11:33 | disposition home or self-care (01) | LOC: SLEEP 11:34 | PROVIDERS: PCP Family Medicine; Visit Provider Family Medicine | DX: G47.33 Obstructive sleep apnea (adult) (pediatric) (principal) | CPT/HCPCS: G0399 ==